=== PATIENT | male | born 1965 | race Caucasian/White ===

== ENCOUNTER → 2024-07-29 06:38 | Outpatient (REF) | payer BC, SELFPAY | LOC: RAD 06:38 | PROVIDERS: ATTENDING PHYSICIAN Internal Medicine | DX: Z87.891 Personal history of nicotine dependence (principal) | CPT/HCPCS: 71271 ==

== ENCOUNTER 2025-01-03 16:08 | Outpatient (RCR) | payer BC, SELFPAY | END 2025-01-03 23:59 | disposition home or self-care (01) | LOC: RPT 16:08 | PROVIDERS: ATTENDING PHYSICIAN Internal Medicine | DX: M54.31 Sciatica, right side (principal); Z73.6 Limitation of activities due to disability; R26.2 Difficulty in walking, not elsewhere classified; M62.81 Muscle weakness (generalized) | CPT/HCPCS: 97110; 97162 ==

== ENCOUNTER → 2025-08-04 06:58 | Outpatient (REF) | payer BC, SELFPAY | LOC: RAD 06:58 | PROVIDERS: ATTENDING PHYSICIAN Internal Medicine | DX: F17.211 Nicotine dependence, cigarettes, in remission (principal); F17.200 Nicotine dependence, unspecified, uncomplicated | CPT/HCPCS: 71271 ==